=== PATIENT | female | born 1965 | race African-American/Black ===

== ENCOUNTER 2025-05-18 07:10 | Inpatient (IN) | payer MEDICAID ==
[~2025-05-18] VITALS: Ht 165.1 cm; Wt 83.9 kg
[2025-05-18 07:59] LABS: BASOPHILS % 1.1 % (0.0-2.0); EOSINOPHILS % 0.6 % (0.0-5.0); HEMATOCRIT. 48.6 % (36.0-48.0); HEMOGLOBIN. 15.5 g/dL (12.0-16.0); LYMPHOCYTES % 24.4 % (20.0-50.0); MEAN PLATELET VOLUME 9.5 fl (7.4-10.4); MONOCYTES % 10.1 % (2.0-8.0); NEUTROPHILS % 63.8 % (40.0-76.0); PLATELET 265 x1000/uL (130-400); RED BLOOD CELL COUNT 5.14 mill/uL (4.2-5.4); RED CELL DISTRIBUTION WIDTH 16.3 % (11.6-14.6)
[2025-05-18] MEDS: IPRATROPIUM BROMIDE (0.02%) 0.5MG/2.5ML NEB HHN ONE (08:00)
[2025-05-18 08:01] VITALS: PULSE 100; RESP 24; O2SAT 100
[2025-05-18] MEDS: ALBUTEROL (0.083%) 2.5MG/3ML NEB HHN ONE (08:01)
[2025-05-18 08:07] LABS: INR 1.2
[2025-05-18] MEDS: FUROSEMIDE 40MG/4ML VIAL IV ONE (08:09)
[2025-05-18] MEDS: NITROGLYCERIN OINT 1GM/INCH UDPKT TD ONE (08:09)
[2025-05-18] MEDS: METHYLPREDNISOLONE SOD SUCC 125MG/2ML (ACT-O-VIAL) IV ONE (08:09)
[2025-05-18 08:16] LABS: CREATININE 0.7 mg/dL (0.6-1.0); UREA NITROGEN BLOOD 12 mg/dL (9-23)
[2025-05-18 08:18] LABS: ASPARTATE AMINOTRANSFERASE 24 IU/L (<34); BILIRUBIN DIRECT 0.5 mg/dL (<=3.0); BILIRUBIN TOTAL 1.5 mg/dL (0.1-1.0); PROTEIN TOTAL 6.6 g/dL (6.0-8.3)
[2025-05-18 08:32] LABS: TROPONIN I HIGH SENSITIVITY 39 ng/L (3.0-34)
[2025-05-18] MEDS ORDERED: ONDANSETRON HCL 4MG/2ML INJ IV PRN (09:45)
[2025-05-18] MEDS ORDERED: ACETAMINOPHEN 650MG SUPP PR PRN ×2 (09:45)
[2025-05-18] MEDS ORDERED: IPRATROPIUM/ALBUTEROL 0.5-3(2.5)MG/3ML NEB HHN PRN (09:45)
[2025-05-18] MEDS ORDERED: CLONIDINE 0.1MG TABLET PO PRN (09:45)
[2025-05-18] MEDS: ENOXAPARIN 40MG/0.4ML SYR SUBCUT SCH (10:20)
[2025-05-18] MEDS: SPIRONOLACTONE 12.5MG TABLET PO SCH (10:28)
[2025-05-18] MEDS: EMPAGLIFLOZIN 10MG TABLET PO SCH (10:29)
[2025-05-18] MEDS: LISINOPRIL 40MG TABLET PO SCH (10:29)
[2025-05-18 10:39] LABS: TROPONIN I HIGH SENSITIVITY 29 ng/L (3.0-34)
[2025-05-18] MEDS: PANTOPRAZOLE SODIUM 40 MG/VIAL IV SCH (10:40)
[2025-05-18 11:39] VITALS: BP 146/102; PULSE 68; RESP 20; TEMP 36.3068
[2025-05-18 12:00] VITALS: BP 152/97; PULSE 89; RESP 16; TEMP 36.5; O2SAT 99
[2025-05-18 12:50] LABS: BG BASE EXCESS -1.4 mmol/L (-2.0-3.0); BG CARBOXYHEMOGLOBIN 2.2 % (0.5-1.5); BG DEOXYHEMOGLOBIN 1.8 % (0.0-5.0); BG FRACTION INSPIRED OXYGEN 32; BG HCO3 ACT 22.2 mmol/L (21.0-28.0); BG METHEMOGLOBIN 0.1 % (0.5-1.5); BG OXYGEN SATURATION 98.2 % (94.0-98.0); BG OXYHEMOGLOBIN 95.9 % (94.0-98.0); BG PCO2 34.6 mmHg (32.0-45.0); BG PH 7.425 (7.350-7.450); BG PO2 96.1 mmHg (83.0-108.0); BG SAMPLE SITE RIGHT BRACHIAL; BG TOTAL HEMOGLOBIN 17.1 g/dL (12.0-16.0); BG VENT MODE NASAL CANNULA
[2025-05-18] MEDS: POTASSIUM CHLORIDE 20MEQ TABLET SR PO SCH (12:59)
[2025-05-18] MEDS ORDERED: FUROSEMIDE 40MG/4ML VIAL IV SCH (17:15)
[2025-05-18 17:33] LABS: PHOSPHORUS 3.7 mg/dL (2.5-4.9); TROPONIN I HIGH SENSITIVITY 25 ng/L (3.0-34)
[2025-05-18] MEDS: FUROSEMIDE 100MG/10ML VIAL IV SCH (18:00)
[2025-05-18 20:00] VITALS: BP 157/104; PULSE 84; RESP 17; TEMP 36.1; O2SAT 97
[2025-05-18] MEDS: BUSPIRONE HCL 5MG TABLET PO SCH (20:42)
[2025-05-18] MEDS: MAGNESIUM 4 G PREMIX 100 ML IV NR (20:43)
[2025-05-19] VITALS: BP 133/82; PULSE 73; RESP 17; TEMP 36.4; O2SAT 97
[2025-05-19 04:00] VITALS: BP 155/95; PULSE 63; RESP 17; TEMP 36.6; O2SAT 96
[2025-05-19 06:41] LABS: BASOPHILS % 0.7 % (0.0-2.0); EOSINOPHILS % 0.2 % (0.0-5.0); HEMATOCRIT. 47.0 % (36.0-48.0); HEMOGLOBIN. 15.1 g/dL (12.0-16.0); LYMPHOCYTES % 9.9 % (20.0-50.0); MEAN PLATELET VOLUME 9.5 fl (7.4-10.4); MONOCYTES % 10.5 % (2.0-8.0); NEUTROPHILS % 78.7 % (40.0-76.0); PLATELET 280 x1000/uL (130-400); RED BLOOD CELL COUNT 4.97 mill/uL (4.2-5.4); RED CELL DISTRIBUTION WIDTH 15.9 % (11.6-14.6)
[2025-05-19 07:46] LABS: TROPONIN I HIGH SENSITIVITY 33 ng/L (3.0-34)
[2025-05-19 07:50] LABS: T4 FREE 1.14 ng/dL (0.89-1.76)
[2025-05-19 07:52] LABS: CREATININE 0.9 mg/dL (0.6-1.0)
[2025-05-19 07:53] LABS: LDL CHOLESTEROL 140 mg/dL (5-100); TRIGLYCERIDE 97 mg/dL (0-150); UREA NITROGEN BLOOD 23 mg/dL (9-23)
[2025-05-19 08:00] VITALS: BP 144/91; PULSE 81; RESP 20; TEMP 36.5; O2SAT 97
[2025-05-19] MEDS: CARVEDILOL 6.25 MG TABLET PO SCH (09:00)
[2025-05-19] MEDS: LISINOPRIL 20MG TABLET PO SCH (09:10)
[2025-05-19 09:53] LABS: CLARITY URINE CLEAR (CLEAR); COLOR URINE YELLOW (YELLOW); GLUCOSE URINE 2+ (NEGATIVE); KETONES URINE NEGATIVE (NEGATIVE); LEUKOCYTE ESTERASE URINE NEGATIVE (NEGATIVE); NITRITE URINE NEGATIVE (NEGATIVE); OCCULT BLOOD URINE NEGATIVE (NEGATIVE); PH URINE 6.5 (4.5-8.0); PROTEIN URINE NEGATIVE (NEGATIVE); SPECIFIC GRAVITY URINE 1.012 (1.005-1.030); UROBILINOGEN URINE 1.0 E.U./dL (0.2-1.0)
[2025-05-19 10:17] LABS: *AMPHETAMINES SCREEN URINE NEGATIVE (NEGATIVE); BACTERIA URINE RARE; RBC URINE 0-2 /hpf (0-2); SQUAMOUS EPITHELIAL CELL URINE FEW /lpf (RARE/1+); WBC URINE 0-2 /hpf (0-2); YEAST URINE NONE SEEN
[2025-05-19 10:18] LABS: *BARBITURATES SCREEN URINE NEGATIVE (NEGATIVE); *BENZODIAZEPINES SCREEN URINE NEGATIVE (NEGATIVE); *COCAINE SCREEN URINE PRESUMPTIVE POSITIVE (NEGATIVE); CANNABINOID URINE SCREEN NEGATIVE (NEGATIVE); ECSTASY MDMA SCREEN URINE NEGATIVE (NEGATIVE); METHADONE URINE SCREEN NEGATIVE (NEGATIVE); OPIATES URINE SCREEN NEGATIVE (NEGATIVE); PHENCYCLIDINE URINE SCREEN NEGATIVE (NEGATIVE)
[2025-05-19 12:00] VITALS: BP 122/87; PULSE 84; RESP 18; TEMP 36.7; O2SAT 100
[2025-05-19 16:00] VITALS: BP 115/64; PULSE 80; RESP 20; TEMP 36.6; O2SAT 100
[2025-05-19 20:00] VITALS: BP 143/83; PULSE 84; RESP 18; TEMP 36.6; O2SAT 96
[2025-05-19] MEDS ORDERED: ATORVASTATIN CALCIUM 40MG TABLET PO SCH (21:00)
[2025-05-19] MEDS: AMLODIPINE 2.5MG TABLET PO SCH (22:04)
[2025-05-19] MEDS: ATORVASTATIN CALCIUM 40MG TABLET PO SCH (22:04)
[2025-05-20] VITALS: BP 103/68; PULSE 74; RESP 18; TEMP 36.4; O2SAT 96
[2025-05-20 04:00] VITALS: BP 120/84; PULSE 70; RESP 18; TEMP 36.4; O2SAT 96
[2025-05-20] MEDS: ACETAMINOPHEN 325MG TABLET PO NR (05:40)
[2025-05-20 07:07] LABS: BASOPHILS % 1.3 % (0.0-2.0); EOSINOPHILS % 1.1 % (0.0-5.0); HEMATOCRIT. 51.0 % (36.0-48.0); HEMOGLOBIN. 16.2 g/dL (12.0-16.0); LYMPHOCYTES % 19.1 % (20.0-50.0); MEAN PLATELET VOLUME 10.2 fl (7.4-10.4); MONOCYTES % 9.6 % (2.0-8.0); NEUTROPHILS % 68.9 % (40.0-76.0); PLATELET 308 x1000/uL (130-400); RED BLOOD CELL COUNT 5.40 mill/uL (4.2-5.4); RED CELL DISTRIBUTION WIDTH 16.2 % (11.6-14.6)
[2025-05-20 07:37] LABS: TROPONIN I HIGH SENSITIVITY 32 ng/L (3.0-34)
[2025-05-20 07:38] LABS: CREATININE 0.9 mg/dL (0.6-1.0); UREA NITROGEN BLOOD 24 mg/dL (9-23)
[2025-05-20 08:00] VITALS: BP 139/93; PULSE 82; RESP 16; TEMP 36.3; O2SAT 97
[2025-05-20 09:00] VITALS: BP 108/69; O2SAT 96
[2025-05-20] MEDS ORDERED: EMPA10TA PO ×2 (10:59→11:05)
[2025-05-20] MEDS ORDERED: FURO80TA87 MT ×2 (10:59→11:05)
[2025-05-20] MEDS ORDERED: BUSP5TAB3 PO ×2 (10:59→11:05)
[2025-05-20] MEDS ORDERED: SPIR25TA PO ×2 (10:59→11:05)
[2025-05-20] MEDS ORDERED: LISI20TA31 PO ×2 (10:59→11:05)
[2025-05-20] MEDS ORDERED: LIP40 PO ×2 (10:59→11:05)
[2025-05-20] MEDS ORDERED: AMLO2.5T45 PO ×2 (10:59→11:05)
[2025-05-20 12:00] VITALS: BP 107/80; PULSE 86; RESP 16; TEMP 36.2; O2SAT 99
[2025-05-20 12:34] VITALS: BP 107/80; PULSE 86; RESP 16; TEMP 97.2
[2025-05-20] MEDS: PNEUMOCOCCAL 20-VAL CONJ-DIP CRM 0.5ML IM ONE (13:02)
[2025-05-20] MEDS: INFLUENZA VACCINE 05/PF 0.5 ML SYRINGE IM ONE (13:03)
== END 2025-05-20 15:56 | disposition home or self-care (01) | DRG 194 ==
LOC: ER 07:10 → 5WST 09:21 → EDBEDREQ 09:21 → EDBEDREQTM 09:21
PROVIDERS: ADMIT Internal Medicine; ATTEND Internal Medicine
DX: I11.0 Hypertensive heart disease with heart failure (principal); Z59.02 Unsheltered homelessness; I16.0 Hypertensive urgency; J44.89 Other specified chronic obstructive pulmonary disease; F19.10 Other psychoactive substance abuse, uncomplicated; E05.90 Thyrotoxicosis, unspecified without thyrotoxic crisis or storm; I50.23 Acute on chronic systolic (congestive) heart failure; I34.0 Nonrheumatic mitral (valve) insufficiency; F41.9 Anxiety disorder, unspecified; F14.90 Cocaine use, unspecified, uncomplicated; F17.210 Nicotine dependence, cigarettes, uncomplicated; K42.9 Umbilical hernia without obstruction or gangrene; E78.5 Hyperlipidemia, unspecified; I45.9 Conduction disorder, unspecified; E83.42 Hypomagnesemia; Z79.899 Other long term (current) drug therapy; Z79.84 Long term (current) use of oral hypoglycemic drugs; Z71.6 Tobacco abuse counseling; Z88.0 Allergy status to penicillin
CPT/HCPCS: 36415; 36600; 71045; 80048; 80061; 80076; 80305; 80320; 81003; 82375; 82553; 82805; 83036; 83735; 83880; 84100; 84439; 84443; 84484; 85025; 90686; 90732; 93005; 93306; 94070; 94640; 94664; 97162; 99285; A4606; J1650; J1938; J2470; J2919; J3475; G0480